=== PATIENT | female | born 1980 | race Caucasian/White ===

== ENCOUNTER 2019-07-11 12:52 | Emergency (ER) | payer BC, OTHER ==
--- NOTE | 2019-07-11 13:10 | EDM.PDOC ---
ED HPI GENERAL MEDICAL PROBLEM - General Chief Complaint: General Stated Complaint: COVID Time Seen by Provider: 07/11/19 12:52 Source of Information: Reports: Patient History Limitations: Reports: No Limitations - History of Present Illness INITIAL COMMENTS - FREE TEXT/NARRATIVE: Patient comes into the emergency department with concerns of bilateral rib discomfort, headache, and fatigue. She also states she has had intermittent sore throat that comes and goes but denies any discomfort or concerns with it right now. Patient states the symptoms all started approximately 3 days ago. Patient is concerned that she could be positive COVID-19. Denies any recent exposure being around any other individuals who have been ill. Patient also denies any fever, nausea, vomiting, shortness of breath, chest pain, visual changes, or peripheral edema. Patient has been relatively healthy. Patient has been recently working out and states that she does get fatigued and has muscle pain at times. However over the course the last week she has not worked out or done anything strenuous. Denies being a healthcare worker or frontline personnel. Did contact emergency department prior to arrival per nursing screening they instructed the patient to drive into the emergency room garage. Onset: Gradual Severity: Mild Improves with: Reports: None Worsens with: Reports: Movement Associated Symptoms: Reports: No Other Symptoms ED ROS GENERAL - Review of Systems Review Of Systems: See Below Constitutional: Reports: Fatigue. Denies: Fever, Chills, Malaise, Night Sweats , Diaphoresis, Decreased Appetite HEENT: Reports: No Symptoms Respiratory: Reports: No Symptoms Cardiovascular: Reports: No Symptoms Endocrine: Reports: No Symptoms GI/Abdominal: Reports: No Symptoms : Reports: No Symptoms Musculoskeletal: Reports: No Symptoms Skin: Reports: No Symptoms Neurological: Reports: No Symptoms Psychiatric: Reports: No Symptoms Hematologic/Lymphatic: Reports: No Symptoms Immunologic: Reports: No Symptoms ED EXAM, GENERAL - Physical Exam Exam: See Below Exam Limited By: No Limitations General Appearance: Alert, WD/WN, No Apparent Distress Nose: Normal Inspection, Normal Mucosa, No Blood Throat/Mouth: Normal Inspection, Normal Lips, Normal Teeth, Normal Oropharynx, Normal Voice, No Airway Compromise Head: Atraumatic, Normocephalic Neck: Normal Inspection, Supple, Non-Tender, Full Range of Motion Respiratory/Chest: No Respiratory Distress, Lungs Clear, No Accessory Muscle Use , Chest Non-Tender Cardiovascular: Normal Peripheral Pulses, Regular Rate, Rhythm, No Edema GI/Abdominal: Normal Bowel Sounds, Soft, Non-Tender, No Distention, Pelvis Stable Back Exam: Normal Inspection, Full Range of Motion Extremities: Normal Inspection, Normal Range of Motion, Non-Tender, No Pedal Edema, Normal Capillary Refill Neurological: Alert, Oriented, Normal Cognition Skin Exam: Warm, Dry, Intact, Normal Color Course - Orders/Labs/Meds Labs: Laboratory Tests 07/11/19 Range/Units 13:19 SARS-CoV-2 RNA (RT-PCR) Negative (NEGATIVE) Departure - Departure Time of Disposition: 13:30 Disposition: Home, Self-Care 01 Condition: Good Clinical Impression: Fatigue Qualifiers: Fatigue type: unspecified Qualified Code(s): R53.83 - Other fatigue - Discharge Information *PRESCRIPTION DRUG MONITORING PROGRAM REVIEWED*: Not Applicable Referrals: [facility] [Primary Care Provider] - Forms: ED Department Discharge Additional Instructions: 1. rest 2. increase your water intake 3. Continue all at home medications 4. Activity and diet as tolerated 5. Can take over the counter Tylenol or ibuprofen for any pain or discomfort 6. Follow up with PCP if symptoms continue, return, or progress 7. Call with any questions or concerns Sepsis Event Note - Focused Exam Date Exam was Performed: 07/11/19 Time Exam was Performed: 13:44 - Assessment/Plan Assessment:: 1. Fatigue 2. Rib discomfort 3. Headache 4. Covid-19 screening Plan: 1. Medical screening from garage with patient remaining in car 2. Covid-19 testing completed 3. Patient and nursing staff was updated regarding the plan of care 4. Education provided the patient regarding activity, diet, rest, over-the- counter medication modalities, and follow-up care was provided 5. Patient and family are agreeable to the above plan of care 6. All questions and concerns were addressed with the patient and family prior to discharge
== END 2019-07-11 13:10 | disposition home or self-care (01) ==
LOC: VM.ED 12:52
DX: R07.81 Pleurodynia (principal); R53.83 Other fatigue; R51 Headache
CPT/HCPCS: 99284; U0002